=== PATIENT | male | born 1965 | race Caucasian/White ===

== ENCOUNTER 2023-01-19 08:50 | Outpatient (CLI) | payer OTHER | END 2023-01-19 09:00 | disposition home or self-care (01) | LOC: TOM 08:50 | PROVIDERS: ATTEND General Practice | DX: R94.5 Abnormal results of liver function studies (principal); R10.9 Unspecified abdominal pain; R10.2 Pelvic and perineal pain; R16.0 Hepatomegaly, not elsewhere classified; R16.1 Splenomegaly, not elsewhere classified; K76.0 Fatty (change of) liver, not elsewhere classified; D70.8 Other neutropenia; D69.6 Thrombocytopenia, unspecified ==